=== PATIENT | male | born 1940 | race Two or more races ===

== ENCOUNTER 2025-05-02 22:57 | Inpatient (IN) | payer MEDICARE, BC ==
[~2025-05-02] VITALS: Ht 177.8 cm; Wt 65.3 kg
[~2025-05-02 22:57] MED LIST: FLUC40SU7 GT; LORA-259 GT; PSEU60TA94 GT
[2025-05-02 23:24] LABS: ABG BASE EXCESS 4.8 mmol/L (-2.0-3.0); ABG OXYGEN SATURATION 94.1 % (94.0-98.0); ABG PCO2 32.8 mmHg (35.0-48.0); ABG PH 7.538 (7.350-7.450); ABG PO2 75.0 mmHg (83.0-108.0); ABG TOTAL HEMOGLOBIN 10.2 G/dL (13.5-17.5); FLOW, BLOOD GAS 15.00 L/min (0.00-30.00); FRACTIONATED INSPIRED OXYGEN 100.0 %; SITE, ABG RIGHT RADIAL
[2025-05-02 23:27] LABS: PLATELET COUNT (AUTO) 203 K/uL (150-450); RED BLOOD CELL COUNT(AUTO) 3.13 MIL/uL (4.5-6.0); RED CELL DISTRIBUTION WIDTH 17.1 % (11.5-15.0); WHITE BLOOD COUNT (AUTO) 7.5 K/uL (4.3-11.0)
[2025-05-02] MEDS: IV NS 0.9% 1,000 ML BAG IV ONE (23:35)
[2025-05-02 23:40] VITALS: O2SAT 100
[2025-05-02 23:41] LABS: CALCIUM, SERUM 8.6 mg/dL (8.5-10.1); CREATININE 3.0 mg/dL (0.6-1.3); SODIUM SERUM 152 mmol/L (136-145); UREA NITROGEN, BLOOD 67 mg/dL (7-18)
[2025-05-02 23:52] LABS: ASPARTATE AMINOTRANSFERASE 31 U/L (15-37); TOTAL PROTEIN, SERUM 7.5 g/dL (6.4-8.2)
[2025-05-03] VITALS (41 sets, daily range): BP systolic 79–130; BP diastolic 46–90; TEMP 97.8–99; O2SAT 92–100
[2025-05-03] MEDS ORDERED: CEFTRIAXONE 1GM BAG (ER ONLY) 50 ML IV ONE (00:38)
[2025-05-03] MEDS: CEFTRIAXONE 1 G in IV D5W 50 ML IV ONE (00:42)
[2025-05-03] MEDS ORDERED: AZITHROMYCIN 500 MG VIAL ONE (00:53)
[2025-05-03] MEDS: AZITHROMYCIN 500 MG in IV D5W 250 ML IV ONE (00:59)
[2025-05-03] MEDS ORDERED: VANCOMYCIN 1 GM /D5W 250 ML PB IV ONE (01:51)
[2025-05-03] MEDS ORDERED: NOREPINEPHRINE 8 MG in IV NS 0.9% 250 ML IV PRN (02:00)
[2025-05-03] MEDS ORDERED: ONDANSETRON HCL/PF 4 MG/2 ML VIAL IVP PRN (02:00)
[2025-05-03] MEDS ORDERED: DOSING PER PHARMACY-VANCOMYCIN IV XX PRN (02:00)
[2025-05-03] MEDS ORDERED: ACETAMINOPHEN 325 MG TABLET PO PRN (02:00)
[2025-05-03] MEDS ORDERED: DOSING PER PHARMACY-CEFEPIME IVPB XX PRN (02:00)
[2025-05-03] MEDS: VANCOMYCIN HCL 1.25 GM in IV D5W 260 ML IV ONE (02:07)
[2025-05-03] MEDS ORDERED: POLYETHYLENE GLYCOL 3350 17 GM POWD.PACK GT PRN (02:30)
[2025-05-03] MEDS ORDERED: ACETAMINOPHEN 650 MG/20.3 ML UDC GT PRN (02:30)
[2025-05-03] MEDS ORDERED: DEXTROSE 50%-WATER 50 ML DISP.SYRIN IV PRN (02:30)
[2025-05-03] MEDS ORDERED: BISACODYL SUPP (10 MG) 10 MG/SUPP.RECT SUPP.RECT RC PRN (02:30)
[2025-05-03] MEDS ORDERED: CEFEPIME 1 GM VIAL ONE (02:53)
[2025-05-03] MEDS ORDERED: IV NS 0.9% 1,000 ML IV PRN (03:00)
[2025-05-03] MEDS: CEFEPIME 1 GM in IV D5W 50 ML IV SCH ×2 (03:46→15:56)
[2025-05-03] MEDS: IV NS 0.9% 250 ML IV PRN (04:02)
[2025-05-03 04:37] LABS: PLATELET COUNT (AUTO) 165 K/uL (150-450); RED BLOOD CELL COUNT(AUTO) 2.49 MIL/uL (4.5-6.0); RED CELL DISTRIBUTION WIDTH 17.4 % (11.5-15.0); WHITE BLOOD COUNT (AUTO) 5.3 K/uL (4.3-11.0)
[2025-05-03 04:53] LABS: CALCIUM, SERUM 7.7 mg/dL (8.5-10.1); CREATININE 2.9 mg/dL (0.6-1.3); PHOSPHORUS 4.2 mg/dL (2.5-4.9); SODIUM SERUM 152.0 mmol/L (136-145); UREA NITROGEN, BLOOD 70.0 mg/dL (7-18)
[2025-05-03 05:06] LABS: ABG BASE EXCESS 1.5 mmol/L (-2.0-3.0); ABG OXYGEN SATURATION 97.9 % (94.0-98.0); ABG PCO2 42.0 mmHg (35.0-48.0); ABG PH 7.414 (7.350-7.450); ABG PO2 119.4 mmHg (83.0-108.0); ABG TOTAL HEMOGLOBIN 8.7 G/dL (13.5-17.5); FLOW, BLOOD GAS 30.00 L/min (0.00-30.00); FRACTIONATED INSPIRED OXYGEN 80.0 %; SITE, ABG RIGHT BRACHIAL
[2025-05-03 05:20] LABS: LYMPHOCYTES % (MANUAL) 18 % (16-48); MONOCYTES % (MANUAL) 2 % (0-11.0); NEUTROPHILS % (MANUAL) 80 (42-76); PLATELET ESTIMATE ADEQUATE
[2025-05-03] MEDS: FOLIC ACID 1 MG TABLET GT SCH (08:13)
[2025-05-03] MEDS: FLUCONAZOLE (100 MG) 100 MG TABLET GT SCH (08:13)
[2025-05-03] MEDS: FUROSEMIDE 20 MG TABLET GT SCH (08:14)
[2025-05-03] MEDS: FINASTERIDE (5 MG) 5 MG TABLET GT SCH (08:14)
[2025-05-03] MEDS: PANTOPRAZOLE 40 MG/PACK PACK GT SCH (08:14)
[2025-05-03] MEDS: cetrizine 10 MG TABLET GT SCH (08:14)
[2025-05-03] MEDS: BLOOD SUGAR DIAGNOSTIC 1 EACH STRIP IN SCH (08:20)
[2025-05-03] MEDS: prednisoLONE ACET 1% OPHT DROP 5 ML BOTTLE RIGHTEYE SCH (08:22)
[2025-05-03] MEDS: TIMOLOL 0.5% SOLN OPHTH 5 ML BOTTLE RIGHTEYE SCH (08:22)
[2025-05-03] MEDS: BRINZOLAMIDE 1 % OPHTH SOLN 10 ML BOTTLE RIGHTEYE SCH (08:23)
[2025-05-03] MEDS: INSULIN REGULAR, HUMAN 100 UNIT/ML 3 ML VIAL SQ PRN (08:24)
[2025-05-03] MEDS: HEPARIN SODIUM, PORCINE 5000 UNITS/1 ML VIAL SQ SCH (08:33)
[2025-05-03] MEDS ORDERED: DIATR MEGLU/DIATRIZOATE SODIUM 30 ML BOTTLE (GASTROGRAPHIN) ONE (08:37)
[2025-05-03] MEDS ORDERED: POLY17PO4 GT (08:52)
[2025-05-03] MEDS ORDERED: BRIN8DRO2 RIGHTEYE (08:52)
[2025-05-03] MEDS ORDERED: INSU100V39 SQ (08:52)
[2025-05-03] MEDS ORDERED: OMEP20TA5 GT (08:52)
[2025-05-03] MEDS ORDERED: DOCU100C36 GT (08:52)
[2025-05-03] MEDS ORDERED: ACET325T53 GT (08:52)
[2025-05-03] MEDS ORDERED: BUDE0.253 IH (08:52)
[2025-05-03] MEDS ORDERED: SENN-261 GT (08:52)
[2025-05-03] MEDS ORDERED: CYCL30DR EACHEYE (08:52)
[2025-05-03] MEDS ORDERED: FOLI0.4T6 GT (08:52)
[2025-05-03] MEDS ORDERED: SILO8CAP6 GT (08:52)
[2025-05-03] MEDS ORDERED: FINA5TAB11 GT (08:52)
[2025-05-03] MEDS ORDERED: PRED5DRO17 RIGHTEYE (08:52)
[2025-05-03] MEDS ORDERED: AZEL137S7 BNOSTRILS (08:52)
[2025-05-03] MEDS ORDERED: BISA10SU11 RC (08:52)
[2025-05-03] MEDS ORDERED: EMPA10TA GT (08:52)
[2025-05-03] MEDS ORDERED: NUT.237L31 GT (08:52)
[2025-05-03] MEDS ORDERED: CHOL200059 GT (08:52)
[2025-05-03] MEDS ORDERED: ATOR40TA GT (08:52)
[2025-05-03] MEDS ORDERED: BIMA2.5D5 RIGHTEYE (08:52)
[2025-05-03] MEDS ORDERED: METO50TA16 GT (08:52)
[2025-05-03] MEDS ORDERED: MIRT-90 GT (08:52)
[2025-05-03] MEDS ORDERED: TIMO5DRO35 RIGHTEYE (08:52)
[2025-05-03] MEDS ORDERED: FURO20TA4 GT (08:52)
[2025-05-03] MEDS ORDERED: MAGN400O6 GT (08:52)
[2025-05-03] MEDS ORDERED: CETI10TA14 GT (08:52)
[2025-05-03] MEDS ORDERED: INSU100I30 SQ (08:52)
[2025-05-03] MEDS ORDERED: ONDA4TAB11 GT (08:52)
[2025-05-03] MEDS ORDERED: NA P133E RC (08:52)
[2025-05-03] MEDS: BUDESONIDE RESPULE INH 0.25 MG/2 ML AMPUL.NEB NEB SCH ×2 (09:00→14:33)
[2025-05-03] MEDS: IV 1/2NS 1000 ML 1,000 ML IV PRN (09:37)
[2025-05-03] MEDS: IPRATROPIUM NEB FS 0.5 MG/2.5 ML AMPUL.NEB NEB SCH (10:30)
[2025-05-03] MEDS: FLUCONAZOLE IN NS,PREMIX 200 MG in PREMIX 1 EA IV SCH (11:16)
[2025-05-03] MEDS: BRIMONIDINE TARTRATE OPHT SOLN 5 ML BOTTLE OP SCH (16:26)
[2025-05-03] MEDS ORDERED: AZELASTINE NASAL SPRAY 30 ML BOTTLE NS PRN (17:00)
[2025-05-03] MEDS ORDERED: BUDESONIDE RESPULE INH 0.25 MG/2 ML AMPUL.NEB IH SCH (17:00)
[2025-05-03] MEDS ORDERED: prednisoLONE ACETATE 1% SUSP 5 ML BOTTLE RIGHTEYE SCH (17:00)
[2025-05-03 18:16] LABS: CREATININE, URINE 49.8 MG/DL (30.0-125.0); URINE SODIUM, RANDOM 24.0 mmol/l (40-220); URINE TOTAL PROTEIN 69.6 mg/dL (0-11.9)
[2025-05-03 18:20] LABS: APPEARANCE,URINE SLIGHTLY CLOUDY (CLEAR); BLOOD, URINE 2+ Ery/uL (NEGATIVE); LEUKOCYTE ESTERASE ,URINE 1+ (NEGATIVE); NITRITE, URINE POSITIVE (NEGATIVE); UGLUCOSE 3+ mg/dL (NEGATIVE)
[2025-05-03 18:42] LABS: ADD URINE CULTURE YES; SQUAMOUS EPITHELIAL CELL,UR Few /HPF (None Seen); YEAST,URINE Moderate /HPF (None Seen)
[2025-05-03 19:52] LABS: EOSINOPHIL,URINE None Seen
[2025-05-03] MEDS: LATANOPROST EYE DROP 0.005% 2.5 ML BOTTLE RIGHTEYE SCH (21:59)
[2025-05-03] MEDS ORDERED: BIMATOPROST 2.5 ML DROPS OP SCH (22:00)
[2025-05-03] MEDS: INSULIN GLARGINE, 100 UNIT/ML CARTRIDGE SQ SCH (22:08)
[2025-05-03] MEDS: MIRTAZAPINE 15 MG TABLET GT SCH (22:19)
[2025-05-03] MEDS: ATORVASTATIN 40 MG TABLET GT SCH (22:19)
[2025-05-04] VITALS (35 sets, daily range): BP systolic 90–137; BP diastolic 49–102; TEMP 96.4–98; O2SAT 93–100
[2025-05-04 03:52] LABS: PLATELET COUNT (AUTO) 171 K/uL (150-450); RED BLOOD CELL COUNT(AUTO) 2.60 MIL/uL (4.5-6.0); RED CELL DISTRIBUTION WIDTH 17.8 % (11.5-15.0); WHITE BLOOD COUNT (AUTO) 3.8 K/uL (4.3-11.0)
[2025-05-04 04:03] LABS: CREATINE KINASE, TOTAL 155.0 U/L (39-308)
[2025-05-04 04:04] LABS: ASPARTATE AMINOTRANSFERASE 51.0 U/L (15-37); CALCIUM, SERUM 8.0 mg/dL (8.5-10.1); CREATININE 2.1 mg/dL (0.6-1.3); PHOSPHORUS 4.3 mg/dL (2.5-4.9); TOTAL PROTEIN, SERUM 6.4 g/dL (6.4-8.2); UREA NITROGEN, BLOOD 64.0 mg/dL (7-18)
[2025-05-04 04:09] LABS: SODIUM SERUM 157.0 mmol/L (136-145)
[2025-05-04] MEDS: IV D5W 1,000 ML IV PRN (06:48)
[2025-05-04] MEDS ORDERED: DEXTROSE 50%-WATER 50 ML DISP.SYRIN IV PRN (08:00)
[2025-05-04] MEDS: INSULIN REGULAR, HUMAN 100 UNIT/ML 3 ML VIAL SQ PRN (11:11)
[2025-05-04] MEDS: BLOOD SUGAR DIAGNOSTIC 1 EACH STRIP IN SCH (11:23)
[2025-05-04] MEDS: GLUCERNA 1.2 1,000 ML BOTTLE NG PRN (14:43)
[2025-05-04] MEDS: LORAZEPAM 0.5 MG TABLET GT PRN (17:02)
[2025-05-05] VITALS (15 sets, daily range): BP systolic 111–130; BP diastolic 56–69; TEMP 95.1–99.3; O2SAT 90–99
[2025-05-05] MEDS: VANCOMYCIN 1 GM in IV D5W 250ml IV SCH (02:14)
[2025-05-05 05:08] LABS: PTH, INTACT 75 pg/mL (15-65)
[2025-05-05 06:27] LABS: PLATELET COUNT (AUTO) 223 K/uL (150-450); RED BLOOD CELL COUNT(AUTO) 2.74 MIL/uL (4.5-6.0); RED CELL DISTRIBUTION WIDTH 17.8 % (11.5-15.0); WHITE BLOOD COUNT (AUTO) 3.8 K/uL (4.3-11.0)
[2025-05-05 06:37] LABS: CALCIUM, SERUM 9.0 mg/dL (8.5-10.1); CREATININE 2.0 mg/dL (0.6-1.3); SODIUM SERUM 154.0 mmol/L (136-145); UREA NITROGEN, BLOOD 57.0 mg/dL (7-18)
[2025-05-05 06:42] LABS: PHOSPHORUS 3.3 mg/dL (2.5-4.9)
[2025-05-05] MEDS: FLUCONAZOLE (100 MG) 100 MG TABLET GT SCH (10:38)
[2025-05-05] MEDS ORDERED: VANCOMYCIN 1 GM in IV D5W 250ml IV SCH (14:00)
[2025-05-05 14:59] LABS: CALCIUM, SERUM 8.4 mg/dL (8.5-10.1); CREATININE 2.0 mg/dL (0.6-1.3); SODIUM SERUM 154.0 mmol/L (136-145); UREA NITROGEN, BLOOD 58.0 mg/dL (7-18)
[2025-05-05] MEDS: IV D5W 1,000 ML IV ONE (18:05)
[2025-05-06] VITALS (17 sets, daily range): BP systolic 101–132; BP diastolic 53–90; TEMP 97.9–99.4; O2SAT 92–100
[2025-05-06 06:21] LABS: CALCIUM, SERUM 8.6 mg/dL (8.5-10.1); CREATININE 1.9 mg/dL (0.6-1.3); SODIUM SERUM 151.0 mmol/L (136-145); UREA NITROGEN, BLOOD 49.0 mg/dL (7-18)
[2025-05-06 06:26] LABS: PHOSPHORUS 2.6 mg/dL (2.5-4.9)
[2025-05-06 06:28] LABS: PLATELET COUNT (AUTO) 165 K/uL (150-450); RED BLOOD CELL COUNT(AUTO) 2.59 MIL/uL (4.5-6.0); RED CELL DISTRIBUTION WIDTH 18.7 % (11.5-15.0); WHITE BLOOD COUNT (AUTO) 4.7 K/uL (4.3-11.0)
[2025-05-06] MEDS ORDERED: VANCOMYCIN 1 GM in IV D5W 250ml IV SCH (14:00)
[2025-05-07] VITALS (11 sets, daily range): BP systolic 102–121; BP diastolic 56–66; TEMP 98–98.4; O2SAT 95–100
[2025-05-07 06:56] LABS: PLATELET COUNT (AUTO) 139 K/uL (150-450); RED BLOOD CELL COUNT(AUTO) 2.45 MIL/uL (4.5-6.0); RED CELL DISTRIBUTION WIDTH 18.0 % (11.5-15.0); WHITE BLOOD COUNT (AUTO) 3.2 K/uL (4.3-11.0)
[2025-05-07 07:13] LABS: CALCIUM, SERUM 8.4 mg/dL (8.5-10.1); CREATININE 1.5 mg/dL (0.6-1.3); SODIUM SERUM 146.0 mmol/L (136-145); UREA NITROGEN, BLOOD 42.0 mg/dL (7-18)
[2025-05-07 07:23] LABS: PHOSPHORUS 2.8 mg/dL (2.5-4.9)
[2025-05-07] MEDS: FREE WATER VIA TUBE FEEDING GT SCH (08:58)
[2025-05-07] MEDS ORDERED: CEFE1PIG3 IV (13:27)
== END 2025-05-07 15:56 | DRG 189 ==
LOC: ER 22:59 → ICU 05-03 01:40 → TELE1 05-04 18:22 → MEDSG1 05-07 13:03
PROVIDERS: ADMIT Registered Nurse Psychiatric/Mental Health; ATTEND Student in an Organized Health Care Education/Training Program
DX: J96.01 Acute respiratory failure with hypoxia (principal); J69.0 Pneumonitis due to inhalation of food and vomit; K94.23 Gastrostomy malfunction; E87.0 Hyperosmolality and hypernatremia; E44.0 Moderate protein-calorie malnutrition; N39.0 Urinary tract infection, site not specified; N17.9 Acute kidney failure, unspecified; I47.10 Supraventricular tachycardia, unspecified; I13.0 Hypertensive heart and chronic kidney disease with heart failure and stage 1 through stage 4 chronic kidney disease, or unspecified chronic kidney disease; I50.22 Chronic systolic (congestive) heart failure; B37.81 Candidal esophagitis; R64 Cachexia; N18.30 Chronic kidney disease, stage 3 unspecified; E86.0 Dehydration; Y83.3 Surgical operation with formation of external stoma as the cause of abnormal reaction of the patient, or of later complication, without mention of misadventure at the time of the procedure; E11.65 Type 2 diabetes mellitus with hyperglycemia; E78.5 Hyperlipidemia, unspecified; E88.09 Other disorders of plasma-protein metabolism, not elsewhere classified; I25.10 Atherosclerotic heart disease of native coronary artery without angina pectoris; Z95.1 Presence of aortocoronary bypass graft; Z98.61 Coronary angioplasty status; Z87.01 Personal history of pneumonia (recurrent); I25.5 Ischemic cardiomyopathy; R13.10 Dysphagia, unspecified; D63.8 Anemia in other chronic diseases classified elsewhere; E87.8 Other disorders of electrolyte and fluid balance, not elsewhere classified; E83.41 Hypermagnesemia; I69.398 Other sequelae of cerebral infarction; H54.61 Unqualified visual loss, right eye, normal vision left eye; J38.3 Other diseases of vocal cords; Z68.20 Body mass index [BMI] 20.0-20.9, adult; E83.9 Disorder of mineral metabolism, unspecified; E11.22 Type 2 diabetes mellitus with diabetic chronic kidney disease; F03.90 Unspecified dementia, unspecified severity, without behavioral disturbance, psychotic disturbance, mood disturbance, and anxiety; J84.10 Pulmonary fibrosis, unspecified; Y73.8 Miscellaneous gastroenterology and urology devices associated with adverse incidents, not elsewhere classified; Y92.129 Unspecified place in nursing home as the place of occurrence of the external cause
CPT/HCPCS: 36415; 36600; 71045-TC; 71250-TC; 74018; 76770-TC; 80048-TC; 80053-TC; 81001; 82550-TC; 82570-TC; 82803-TC; 82962-TC; 83605-TC; 83735-TC; 83880; 83970; 84100-TC; 84155; 84165; 84300-TC; 85025-TC; 85027-TC; 86140-TC; 87040-TC; 87081-TC; 87086-TC; 87186-TC; 94762-TC; 94799-TC; 97110-TC; 97530-TC; A4216; A4223; G0378; J0456; J0692; J0696; J1450; J1644; J1815; J3373; J3490; J7050; J7060; J7070; Q9963